=== PATIENT | male | born 1985 | race Hispanic/Latino ===

== ENCOUNTER 2016-10-28 11:05 | Emergency (ER) | payer SELFPAY ==
[2016-10-28 11:17] VITALS: BP 116/74
--- NOTE | 2016-10-28 11:44 | XRay Report ---
LEFT ANKLE, 3 views: History: Left ankle pain and swelling. Bone mineralization is normal. No acute osseous abnormality or joint pathology is identified. There is severe lateral soft tissue swelling. IMPRESSION: Lateral soft tissue swelling. No acute osseous injury detected.
[2016-10-28] MEDS ORDERED: MOTRIN PO ONE (13:11)
--- NOTE | 2016-10-28 18:47 | Emergency Department Report ---
Entered by GRICELDA GONSALVES, acting as scribe for CORI SEVERINO NP. ED Lower Extremity HPI - General Chief Complaint: Extremity Injury, Lower Stated Complaint: LEFT ANKLE INJURY Time Seen by Provider: 10/28/16 12:13 Source: patient Mode of arrival: Ambulatory Limitations: No Limitations - History of Present Illness Initial Comments: This is a 31 y/o male, nontoxic, well nourished in appearance, no acute signs of distress with no significant PMHx presents with c/o 4/10, sharp left ankle pain for 1 day. Aggravated with nothing and alleviated with nothing. Patient states a bookcase fell on his left ankle while moving it yesterday. Patient reports associated left ankle swelling, but he denies fever, chills, chest pain , SOB, FLOR[place] or dizziness, numbness, and tingling. NKDA. CLARKE Complaint: ankle injury (left) Onset/Timin -: days(s) Injury: Ankle: Left Type of Injury: blunt (bookcase fell on left ankle) Place: home Severity: mild Severity scale (0 -10): 4 Improves With: nothing Worsens With: nothing Context: other (bookcase fell on left ankle) Associated Symptoms: swelling, able to partially bear weight, ambulatory. denies: snap/pop sensation, numbness, tingling - Related Data Previous Rx's Medication Instructions Recorded Last Taken Type Ibuprofen [Motrin 600 MG tab] 600 mg PO Q8H PRN #15 tablet 10/28/16 Unknown Rx predniSONE [Deltasone] 20 mg PO BID #10 tab 10/28/16 Unknown Rx Allergies Allergy/AdvReac Type Severity Reaction Status Date / Time No Known Allergies Allergy Unverified 10/28/16 11:17 ED Review of Systems Comment: All other systems reviewed and negative Constitutional: denies: chills, fever, weakness Eyes: denies: eye pain, eye discharge, vision change ENT: denies: ear pain, throat pain Respiratory: denies: cough, orthopnea, shortness of breath, SOB with exertion, SOB at rest, stridor, wheezing Cardiovascular: denies: chest pain, palpitations Endocrine: no symptoms reported Gastrointestinal: denies: abdominal pain, nausea, diarrhea Musculoskeletal: joint swelling (left ankle), myalgia (left ankle pain). denies : back pain, arthralgia Skin: denies: rash, lesions Neurological: denies: headache, weakness, numbness, paresthesias Hematological/Lymphatic: denies: easy bleeding, easy bruising ED Past Medical Hx - Past Medical History Previous Medical History?: No - Surgical History Past Surgical History?: No - Social History Smoking Status: Current Every Day Smoker Substance Use Type: Alcohol, Marijuana - Medications Home Medications: Home Medications Medication Instructions Recorded Confirmed Last Taken Type Ibuprofen [Motrin 600 MG tab] 600 mg PO Q8H PRN #15 tablet 10/28/16 Unknown Rx predniSONE [Deltasone] 20 mg PO BID #10 tab 10/28/16 Unknown Rx ED Physical Exam - General Limitations: No Limitations General appearance: alert, in no apparent distress - Head Head exam: Present: atraumatic, normocephalic - Eye Eye exam: Present: normal appearance, PERRL, EOMI Pupils: Present: normal accommodation - ENT ENT exam: Present: normal exam, mucous membranes moist, normal external ear exam - Neck Neck exam: Present: normal inspection, full ROM. Absent: tenderness, meningismus, lymphadenopathy - Respiratory Respiratory exam: Present: normal lung sounds bilaterally. Absent: respiratory distress, wheezes, rales, rhonchi, stridor - Cardiovascular Cardiovascular Exam: Present: regular rate, normal rhythm, normal heart sounds. Absent: systolic murmur, diastolic murmur, rubs, gallop - GI/Abdominal GI/Abdominal exam: Present: soft, normal bowel sounds. Absent: distended - Extremities Exam Extremities exam: Present: full ROM (limited ROM to left ankle due to pain), normal capillary refill, joint swelling (left ankle). Absent: tenderness, pedal edema, calf tenderness - Expanded Lower Extremity Exam Left Hip exam: Present: normal inspection, full ROM Upper Leg exam: Present: normal inspection, full ROM Knee exam: Present: normal inspection, full ROM Lower Leg exam: Present: normal inspection, full ROM Ankle exam: Present: full ROM (limited ROM due to left ankle pain), tenderness, swelling. Absent: abrasion, laceration, ecchymosis, deformity, crepidus, dislocation, erythema, anterior draw sign Foot/Toe exam: Present: normal inspection, full ROM. Absent: tenderness, swelling Neuro vascular tendon exam: Present: no vascular compromise. Absent: pulse deficit, abnormal cap refill, motor deficit, sensory deficit, tendon deficit, extremity cold to touch, pallor, abnormal 2-point discrimination, decreased fine /light touch, foot drop, peroneal nerve deficit, significant pain with passive ROM of distal joint Gait: Positive: observed and limited by pain 1 - swelling and tendnerss - Back Exam Back exam: Present: normal inspection, full ROM. Absent: tenderness, CVA tenderness (R), CVA tenderness (L), muscle spasm, paraspinal tenderness, vertebral tenderness - Neurological Exam Neurological exam: Present: alert, oriented X3, CN II-XII intact, reflexes normal. Absent: normal gait (limping gait due to left ankle pain), motor sensory deficit - Psychiatric Psychiatric exam: Present: normal affect, normal mood - Skin Skin exam: Present: warm, dry, intact. Absent: rash ED Course Vital Signs 10/28/16 11:11 Temperature 97.7 F Pulse Rate 89 Blood Pressure 116/74 O2 Sat by Pulse 100 Oximetry ED Lower Extremity MDM - Medical Decision Making Ed course: This is a 31-year-old male that presents with left ankle strain 1- X-ray of left ankle has been obtained with no fx noted. Dictated by Dr. Yang. Patient has been notified of x-ray findings. 2- gildardo wrap has been applied to the extremity. Patient denies any numbness, tingling, or unable to move extremity post-Gildardo wrap. 3- patient received prednisone and ibuprofen until of discharge. 4- patient was instructed to follow with Dr. River in 24 hours orthopedic doctor. 4- at time time of discharge, the patient does not seem toxic or ill in appearance. No acute signs of distress noted. Patient agrees to discharge treatment plan of care. No further questions noted by the patient. 5- patient was instructed to limit weight bearing and received Crutches with crutches instructions. 6- pt was instrcuted to RICE therapy. ED Disposition Clinical Impression: Left ankle strain Qualifiers: Encounter type: initial encounter Qualified Code(s): S96.912A - Strain of unspecified muscle and tendon at ankle and foot level, left foot, initial encounter Disposition: DC-01 TO HOME OR SELFCARE Is pt being admited?: No Does the pt Need Aspirin: No Condition: Stable Instructions: RICE Therapy (ED), Crutch Instructions (ED) Additional Instructions: follow-up with Dr. River or any other orthopedic doctor in 24 hours. Rest, elevate and ice extremity. Take prednisone and ibuprofen as prescribed. Prescriptions: Ibuprofen [Motrin 600 MG tab] 600 mg PO Q8H PRN #15 tablet PRN Reason: Pain predniSONE [Deltasone] 20 mg PO BID #10 tab Referrals: PRIMARY CAREMD [Primary Care Provider] - 3-5 Days [facility] [Outside] - 3-5 Days [facility] [place] [Outside] - 3-5 Days FRANCES RIVER MD [Staff Physician] - 24 Hours Forms: Work/School Release Form(ED) This documentation as recorded by the MAJOR aguilar JASMINE,accurately reflects the service I personally performed and the decisions made by ,CORI SEVERINO, QUALITY ASSURANCE ASSESSOR.
== END 2016-10-28 13:58 | disposition home or self-care (01) ==
LOC: EDBD → ED 11:05
DX: S96.912A Strain of unspecified muscle and tendon at ankle and foot level, left foot, initial encounter (principal); F17.200 Nicotine dependence, unspecified, uncomplicated; F12.10 Cannabis abuse, uncomplicated; W20.8XXA Other cause of strike by thrown, projected or falling object, initial encounter; Y93.89 Activity, other specified; Y92.89 Other specified places as the place of occurrence of the external cause; Y99.8 Other external cause status